=== PATIENT | male | born 2000 | race Caucasian/White ===

== ENCOUNTER 2020-10-30 14:27 | Emergency (ER) | payer SELFPAY ==
--- OUTSIDE RECORDS SUMMARY | 2020-10-30 14:30 | XMS REPORT | Continuity of Care Document ---
:2000 Author Organization [facility] t Address [facility] [address] [place] [address] Care Team Providers Name Role Phone System, Not In Primary Care Physician Unavailable Sharda HOUSTON, H Attending Clinician NONE Attending Clinician Unavailable NONE Admitting Clinician Unavailable Problems This patient has no known problems. Allergies, Adverse Reactions, Alerts Allergy Allergy Status Severity Reaction(s) Onset Inactive Treating Comm ents Source Name Type Date Date Clinician Naproxen Propensi Active Hives Method i ty to 12-01 st adverse 00:00: Hospita reaction 00 l s to drug Social History Social Habit Start Date Stop Date Quantity Comments Source Tobacco use and 2019-12-02 2019-12-02 Never used [facility]ondo[facility] exposure 00:00:00 00:00:00 Hospital Alcohol intake 2019-12-02 2019-12-02 Current drinker Metho dist 00:00:00 00:00:00 of [facility] (finding) Alcohol Comment 2019-12-02 2019-12-02 Very rare [facility] 00:00:00 00:00:00 Hospital Sex Assigned At [birth year] [facility] 00:00:00 00:00:00 Hospital Smoking Status Start Date Stop Date Source Never smoker [facility] al Medications Ordered Filled Start Stop Current Ordering Indication Dosage Frequency Signature Comments Components Source Medication Medication Date Date Medication? Clinician (SIG) Name Name docusate 2019- No 100mg Q12H Take 1 Metho di sodium 12-[address] (COLACE) 00:00: 04:59 (100 mg Hospi ta 100 MG 00 :00 total) by l capsule mouth every 12 (twelve) hours for 10 days. clindamycin 2019- No 300mg [id number] Take 2 [facility]i (CLEOCIN) 12-[id number] 150 MG 00:00: 04:59 3D (300 mg Hospita capsule 00 :00 total) by l mouth 3 (three) times a day for 5 days. acetaminoph 2019- [place] [address] 1{tbl} Q6H Take 1 Methodi en-codeine 12-[address] (TYLENOL 00:00: 04:59 mouth Hospita WITH 00 :00 every 6 l CODEINE #3) (six) 300-30 mg hours as per tablet needed for moderate pain for up to 3 days .acute pain. ondansetron 2019- No 4mg Q8H Take 1 Met hodi ODT 12-01 tablet (4 st (ZOFRAN-ODT 00:00: 04:59 mg total) Hospita ) 4 MG 00 :00 by mouth l disintegrat every 8 ing tablet (eight) hours as needed for nausea or vomiting for up to 3 days. Vital Signs Vital Name Observation Time Observation Value Comments Source Systolic blood 2019-12-02 23:52:00 122 mm[Hg] [facility] pressure Diastolic blood 2019-12-02 23:52:00 81 mm[Hg] [facility] pressure Heart rate 2019-12-02 23:52:00 71 /min [facility] Body temperature 2019-12-02 23:52:00 37.06 Becca [facility] Respiratory rate 2019-12-02 23:52:00 19 /min [facility] Oxygen saturation in 2019-12-02 23:52:00 99 /min [facility] Arterial blood by Pulse oximetry Body height 2019-12-02 22:32:00 180.3 cm [facility] Body weight 2019-12-02 22:32:00 72.576 kg [facility] BMI 2019-12-02 22:32:00 22.32 kg/m2 [facility] Procedures This patient has no known procedures. Encounters Start End Encounter Admission Attending Care Care Encounter Source Date/Time Date/Time Type Type Clinicians Facility Department ID 2019-12-02 2019-12-02 Emergency Sharda, [id number] [id number] [facility] 17:34:35 18:57:00 [facility] [id number] [id number] Hospit a .[id number] l .8 2019-12-02 2019-12-02 Emergency SHARDA, [facility] [id number] [place] [address] 00:00:00 00:00:[address] [facility] [address] 2019-06-01 2019-06-01 Emergency E [facility] 7501 16:54:00 16:54:00 [facility] 2018-09-23 2018-09-23 Emergency E [facility] [id number] 22:23:00 22:23:00 [facility] [place] Test Description Test Time Test Comments Results Result Comments Source B12, VITAMIN 2018-04-12 12:02:00 Test Item Value Reference Range Interpretation Comme nts B12 (test code = B12) 473 pg/ml [id number] 10:08:00 Test Item Value Reference Range Interpretation Comments Sodium (test code = 141 mmol/l 137-145 NA) Potassium (test 4.1 mmol/l 3.5-5.1 code = K) Chloride (test code 105 mmol/l 98-107 = CL) Calcium (test code 9.5 mg/dl 8.5-10.1 = CALC) CO2 (test code = 31 mmol/l 21-32 CO2) Glucose (test code 78 mg/dl 74-106 = GLU) BUN (test code = 10.0 mg/dl 7.0-18.0 BUN) Creatinine (test 1.0 mg/dl 0.5-1.3 code = CREA) T Protein (test 7.8 gm/dl 6.4-8.2 code = TP) Albumin (test code 4.1 gm/dl 3.4-5.0 = ALB) A/G Ratio (test 1.1 % 1.1-2.2 code = AGRAT) AST (SGOT) (test 14 U/L 15-37 L code = AST) ALT (SGPT) (test 17 U/L 13-61 code = ALT) Alkaline Phos (test 83 U/L 45-117 code = ALKP) Total Bilirubin 0.5 mg/dl 0.2-1.0 (test code = TBIL) Globulin (test code 3.7 gm/dl 2.3-3.5 H = GLOBU) Calcium, Corrected 9.4 mg/dl 8.4-10.2 Various f ormulas exist (test code = for corrected s sara CALCCORR) calcium results , each yielding differ ent values. This corrected resul t was based on the fo rmula: Corrected Calci um = SerumCalcium + [0.8 * ( 4 - SerumAlbu min)] EGFR if >60 Russian (test code mL/min/1.73m\\ = EGFRAA) S\\2 EGFR if Non- >60 Estimate d Glomerular Russian (test code mL/min/1.73m\\ Filtrat ion Rate (eGFR) = EGFRNA) S\\2 Reference Inter vals Decision Points for 18 years and older and average body ma ss: >= 60 Does not exc lude kidney disease. 30 - 59 Suggests modera te chronic kidney disease and indicat es the need for furthe r investigation including asses sment of proteinuria and cardiovascular factors. < 30 Usually in dicates a need for refe rral for assessment and management of c hronic kidney failure. [id number] 10:08:00 Test Item Value Reference Range Interpretation Comments Folic Acid (test code = FOLIC) 7.40 ng/ml 3.10-17.50 VALPROIC [id number] 10:08:00 Test Item Value Reference Range Interpretation Comments Valproic Acid (test code = VALPR) 35.2 ug/ml 50.0-120.0 L CBC WITH AUTO [id number] 10:07:00 Test Item Value Reference Range Interpretation Comments WBC (test code = 5.08 10\\S\\3/ul 4.80-10.80 WBC) RBC (test code = 4.95 10\\S\\6/ul 4.70-6.10 RBC) Hemoglobin (test 15.0 gm/dl 14.0-18.0 code = HGB) Hematocrit (test 45.4 % 42.0-50.0 code = HCT) MCV (test code = 91.7 fL 80.0-94.0 MCV) MCH (test code = 30.3 pg 27.0-31.0 MCH) MCHC (test code = 33.0 gm/dl 33.0-37.0 MCHC) RDW (test code = 11.9 % 11.5-14.5 RDWVC) Platelet (test code 256 10\\S\\3/ul 130-400 = PLT) MPV (test code = 10.0 fL 7.4-10.4 A "NOT MEASUR ED" MPV) RESULTS ARE DIS PLAYED WHEN THE INSTRU MENT HAS A SUPPRESSE D OR UNREPORTABLE RE SULT. THIS WILL MOST OFTEN HAPPEN WITH THE MPV WHEN THERE IS A N ABNORMAL PLATEL ET DISTRIBUTION DU E TO A CRITICAL LOW VA LUE OR PLATELET CLUMPI NG. THE RDW MAY BE SUPPRESSED IF T HERE ARE MULTIPLE PE AKS PRESENT ON THE RBC HISTOGRAM. IN THIS CASE, A MANUAL REVIEW OF THE SLIDE WI LL BE PERFORMED, AND RBC MORPHOLOGY WILL BE NOTED ON THE RE PORT. NE% (test code = 42.6 % 42.0-75.0 NE) LY% (test code = 46.5 % 13.0-42.0 H LY) MO% (test code = 8.3 % 4.0-14.0 MO) EO% (test code = 1.8 % 1.0-5.0 EO) BA% (test code = 0.8 % 0.0-3.0 BA) IG% (test code = 0.0 % 0.0-0.4 IG%) NRBC, Auto (test 0 /100WBC 0-2 code = NRBC_AUTO) TSH (Ultra Sensitive)2018-04-12 10:07:00 Test Item Value Reference Range Interpretation Comments TSH (test code = TSH) 1.19 mIU/L 0.35-3.74 [id number] 10:05:00 Test Item Value Reference Range Interpretation Comments FT (test code = RPR) Non-Reactive (qualifier Non-Reactive N value)
[2020-10-30] MEDS ORDERED: ONDANSETRON 4 MG (ODT) TAB ONE (15:48)
[2020-10-30 17:52] LABS: SARS-COV-2 RT PCR POSITIVE (NEGATIVE)
--- NOTE | 2020-10-30 17:58 | ER ---
Nurse's Notes [facility] Name: Desean Kovacs Age: 20 yrs Sex: Male : 2000 Arrival Date: 10/30/2020 Time: 14:28 Bed DIS8 Private MD: Diagnosis: Coronavirus infection, unspecified Presentation: 10/30 15:27 Chief complaint: Patient states: Cough, N/D/D, fever, cough, joint pain x 48 hours. jl7 Coronavirus screen: cough unrelated to allergies, fever, Client presents with at least one sign or symptom that may indicate coronavirus-19. Standard/surgical mask placed on the client. Provider contacted for isolation considerations. Ebola Screen: No symptoms or risks identified at this time. Initial Sepsis Screen: Does the patient meet any 2 criteria? No. Patient's initial sepsis screen is negative. Does the patient have a suspected source of infection? No. Patient's initial sepsis screen is negative. Risk Assessment: Do you want to hurt yourself or someone else? Patient reports no desire to harm self or others. Onset of symptoms was October 30, 2020. 15:27 Method Of Arrival: Ambulatory 7 15:27 Acuity: KAROL 4 jl7 Historical: - Allergies: 15:30 No Known Allergies; jl7 - Home Meds: 15:30 None [Active]; jl7 - PMHx: 15:30 None; jl7 - PSHx: 15:30 None; jl7 - Immunization history:: Client reports receiving the 1st dose of the Covid vaccine, July 2020. - Social history:: Smoking status: unknown. Vital Signs: 15:27 BP 128 / 89; Pulse 74; Resp 17; Temp 99.7; Pulse Ox 99% ; Weight 71.67 kg; Height 5 ft. jl7 11 in. (180.34 cm); 15:27 Body Mass Index 22.04 (71.67 kg, 180.34 cm) jl7 ED Course: 14:28 Patient arrived in ED. am2 15:14 Agnes Mallory FNP-C is [facility]. kb 15:14 Milad Lantigua is Attending Physician. kb 15:30 Triage completed. jl7 15:30 Arm band placed on right wrist. Patient placed in waiting room, Patient notified of jl7 wait time. 18:08 Gino, Cathy, RN is Primary Nurse. iw Administered Medications: 15:33 Drug: Zofran (Ondansetron) 4 mg Route: PO; kb 16:00 Follow up: Response: No adverse reaction iw Outcome: 17:57 Discharge ordered by . luz 18:08 Patient left the ED. iw Signatures: Agnes Mallory, PATIENT PARTNER-C PATIENT PARTNER-Ckb Cathy Christian RN RN iw Leal, Jahala, RN RN jl Lacie Alberto
--- NOTE | 2020-10-30 17:58 | EDPHYS ---
Physician Documentation [facility] Name: Desean Kovacs Age: 20 yrs Sex: Male : 2000 Arrival Date: 10/30/2020 Time: 14:28 Bed DIS8 Private MD: ED Physician Milad Lantigua HPI: 10/30 17:46 This 20 yrs old Male presents to ER via Ambulatory with complaints of Cough, kb Diarrhea, Shortness Of Breath, General Weakness. 17:46 The patient or guardian reports cough, that is intermittent, described as mild, with no kb sputum, flu symptoms, low-grade fever, myalgias, no appetite. Onset: The symptoms/episode began/occurred 48 hour(s) ago. Severity of symptoms: At their worst the symptoms were moderate, in the emergency department the symptoms are unchanged. Modifying factors: The symptoms are alleviated by nothing, the symptoms are aggravated by nothing. Associated signs and symptoms: Pertinent positives: diarrhea, fever, nausea, rhinorrhea, vomiting. The patient has not experienced similar symptoms in the past. The patient has not recently seen a physician. Pt reports cough, headache, back pain, joint pain, n/v/d, fever for 48 hours. Historical: - Allergies: 15:30 No Known Allergies; jl7 - Home Meds: 15:30 None [Active]; jl7 - PMHx: 15:30 None; jl7 - PSHx: 15:30 None; jl7 - Immunization history:: Client reports receiving the 1st dose of the Covid vaccine, July 2020. - Social history:: Smoking status: unknown. ROS: 17:46 Cardiovascular: Negative for chest pain, palpitations, and edema. kb 17:46 Constitutional: Positive for body aches, chills, fatigue, fever, malaise. 17:46 Respiratory: Positive for cough, Negative for dyspnea on exertion, hemoptysis, orthopnea, pleurisy, shortness of breath, sputum production, wheezing. 17:46 Abdomen/GI: Positive for nausea, vomiting, and diarrhea. 17:46 Neuro: Positive for headache. 17:46 All other systems are negative. Exam: 17:48 Constitutional: This is a well developed, well nourished patient who is awake, alert, kb and in no acute distress. Head/Face: Normocephalic, atraumatic. ENT: Moist Mucous membranes Cardiovascular: Regular rate and rhythm with a normal S1 and S2. No gallops, murmurs, or rubs. No pulse deficits. Respiratory: Respirations even and unlabored. No increased work of breathing, no retractions or nasal flaring. Skin: Warm, dry with normal turgor. Normal color. MS/ Extremity: Pulses equal, no cyanosis. Neurovascular intact. Full, normal range of motion. Neuro: Awake and alert, GCS 15, oriented to person, place, time, and situation. Moves all extremities. Normal gait. Psych: Awake, alert, with orientation to person, place and time. Behavior, mood, and affect are within normal limits. Vital Signs: 15:27 BP 128 / 89; Pulse 74; Resp 17; Temp 99.7; Pulse Ox 99% ; Weight 71.67 kg; Height 5 ft. jl7 11 in. (180.34 cm); 15:27 Body Mass Index 22.04 (71.67 kg, 180.34 cm) jl7 MDM: 15:32 Patient medically screened. kb 17:48 Data reviewed: vital signs, nurses notes. Data interpreted: Pulse oximetry: on room air kb is 99 %. Interpretation: normal. Counseling: I had a detailed discussion with the patient and/or guardian regarding: the historical points, exam findings, and any diagnostic results supporting the discharge/admit diagnosis, lab results, the need for outpatient follow up, a family practitioner, to return to the emergency department if symptoms worsen or persist or if there are any questions or concerns that arise at home. 10/30 17:52 Order name: COVID-19/FLU A+B; Complete Time: 17:55 EDMS Administered Medications: 15:33 Drug: Zofran (Ondansetron) 4 mg Route: PO; kb 16:00 Follow up: Response: No adverse reaction iw Disposition: 18:58 Co-signature as Attending Physician, Milad Lantigua I agree with the assessment and plan sp3 of care. Disposition Summary: 10/30/20 17:57 Discharge Ordered Location: Home kb Condition: Stable kb Diagnosis - Coronavirus infection, unspecified kb Followup: kb - With: Emergency Department - When: As needed - Reason: Worsening of condition Followup: kb - With: Private Physician - When: 2 - 3 days - Reason: Recheck today's complaints, Continuance of care, Re-evaluation by your physician Discharge Instructions: - Discharge Summary Sheet kb - Viral Respiratory Infection, [id number] kb - COVID-19 kb Forms: - Medication Reconciliation Form kb - Thank You Letter kb - Antibiotic Education kb - Prescription Opioid Use kb Prescriptions: - Zofran 4 mg Oral Tablet - take 1 tablet by ORAL route every 6 hours As needed; 20 tablet; Refills: 0, kb Product Selection Permitted Signatures: Dispatcher [employer] EDMS Agnes Mallory, KEERTHI-C PHOTOGRAPHIC PRESS SCREWMAKER-Dana Roberts, RN RN jl7 Milad Lantigua sp3 Cathy Christian RN iw Corrections: (The following items were deleted from the chart) 16:48 15:04 Influenza Screen (A \T\ B)+BA.LAB.BRZ ordered. EDMS EDMS 16:49 15:04 CORONAVIRUS+MR.LAB.BRZ ordered. EDMS EDMS
[2020-10-30 18:21] VITALS: BP 128/89; TEMP 99.7; O2SAT 99
== END 2020-10-30 18:08 | disposition home or self-care (01) ==
LOC: ER 14:27
DX: U07.1 COVID-19 (principal)
CPT/HCPCS: 0240U; 99282

== ENCOUNTER 2021-04-04 14:10 | Emergency (ER) | payer SELFPAY ==
--- OUTSIDE RECORDS SUMMARY | 2021-04-04 14:13 | XMS REPORT | Continuity of Care Document ---
:2000 Author Organization [facility] t Address [address] [place] [address] Care Team Providers Name Role Phone System, Not In Primary Care Physician Unavailable Zabrina HOUSTON, H Attending Clinician ABRIL Attending Clinician Unavailable NONE Attending Clinician Unavailable NONE Admitting Clinician [...] Tobacco use and 2019-12-02 2019-12-02 Never used [facility]ist exposure 00:00:00 00:00:00 Hospital Alcohol intake 2019-12-02 2019-12-02 Current drinker Metho dist 00:00:00 00:00:00 of alcohol Hospital (finding) Alcohol Comment 2019-12-02 2019-12-02 Very rare [facility] 00:00:00 00:00:00 Hospital Sex Assigned At [birth year] [facility] 00:00:00 00:00:00 Hospital Smoking Status Start Date Stop Date Source Never smoker [facility] al Medications Ordered Filled Start Stop Current Ordering Indication Dosage Frequency Signature Comments Components Source Medication Medication Date Date Medication? Clinician (SIG) Name Name docusate 2019-0 2020- No 100mg Q12H Take 1 Metho di sodium 12-[address] (COLACE) 00:00: 04:59 (100 mg Hospi ta 100 MG 00 :00 total) by l capsule mouth every 12 (twelve) hours for 10 days. clindamycin 300mg Q.[id number] Take 2 [facility] (CLEOCIN) 12-[id number] 150 MG 00:00: 04:59 3D (300 mg Hospita capsule 00 :00 total) by l mouth 3 (three) times a day for 5 [place] [id number] 1{tbl} Q6H Take 1 [facility] en-codeine 12-[address] (TYLENOL 00:00: 04:59 mouth Hospita WITH 00 :00 every 6 l CODEINE #3) (six) 300-30 mg hours as per tablet needed for moderate pain for up to 3 days .acute pain. ondansetron No 4mg Q8H Take 1 Met hodi ODT 12-01 tablet (4 st (ZOFRAN-ODT 00:00: 04:59 mg total) Hospita ) 4 MG 00 :00 by mouth l disintegrat every 8 ing tablet (eight) hours as needed for nausea or vomiting for up to 3 days. Vital Signs Vital Name Observation Time Observation Value Comments Source Systolic blood 2019-12-02 23:52:00 122 mm[Hg] [facility] pressure Diastolic blood 2019-12-02 23:52:00 81 mm[Hg] [facility] pressure Heart rate 2019-12-02 23:52:00 71 /min [facility] Body temperature 2019-12-02 23:52:00 37.06 Becca [facility] Respiratory rate 2019-12-02 23:52:00 19 /min [facility] Oxygen saturation in 2019-12-02 23:52:00 99 /min [facility] Arterial blood by Pulse oximetry Body height 2019-12-02 22:32:00 180.3 cm [facility] Body weight 2019-12-02 22:32:00 72.576 kg [facility] BMI 2019-12-02 22:32:00 22.32 kg/m2 [facility] Procedures This patient has no known procedures. Encounters Start End Encounter Admission Attending Care Care Encounter Source Date/Time Date/Time Type Type Clinicians Facility Department ID 2019-12-02 2019-12-02 Emergency Zabrina, [id number] [id number] [facility] 17:34:35 18:57:00 [place] [address] 3.430.2.7 Hospit a .3.030668 l .8 2019-06-01 2019-06-01 Emergency E ABRIL, [place] [facility] 7501 16:54:00 17:14:00 [facility] [place] [facility] 2018-09-23 2018-09-23 Emergency E [place] [facility] 7500 22:23:00 22:23:00 [place] [facility] Results Test Description Test Time Test Comments Results Result Comments Source B12, VITAMIN 2018-04-12 12:02:00 Test Item Value Reference Range Interpretation Comme nts B12 (test code = B12) 473 pg/ml [id number] 10:08:00 Test Item Value Reference Range Interpretation [...] 4 - SerumAlbu min)] EGFR if >60 Niuean (test code mL/min/1.73m\\ = EGFRAA) S\\2 EGFR if Non- >60 Estimate d Glomerular Niuean (test code mL/min/1.73m\\ Filtrat ion Rate (eGFR) [...] and management of c hronic kidney failure. [id number] 10:08:00 Test Item Value Reference Range Interpretation Comments Folic Acid (test code = FOLIC) 7.40 ng/ml 3.10-17.50 VALPROIC [id number] 10:08:00 Test Item Value Reference Range Interpretation Comments Valproic Acid (test code = VALPR) 35.2 ug/ml 50.0-120.0 L CBC WITH AUTO [id number] 10:07:00 Test Item Value Reference Range Interpretation [...] (test code = TSH) 1.19 mIU/L 0.35-3.74 [id number] 10:05:00 Test Item Value Reference Range Interpretation Comments FT (test code = RPR) Non-Reactive (qualifier Non-Reactive N value)
[2021-04-04 14:36] LABS: Urine Blood Negative (Negative); Urine Glucose Negative (Negative); Urine Protein Negative (Negative); Urine Specific Gravity >=1.030 (1.005-1.030)
[2021-04-04 15:06] LABS: Absolute Lymphocytes (CBC) 1.7 K/uL (0.7-4.9); Hematocrit 44.9 % (39.6-49.0); Lymphocytes % 25.7 % (15.3-44.8); MPV 7.4 fL (7.6-11.3); RBC Red Blood Cell Count 4.99 M/uL (4.33-5.43)
[2021-04-04 15:09] LABS: Protime INR 1.04
[2021-04-04 15:15] LABS: Barbiturates NEGATIVE (NEGATIVE); Benzodiazepines NEGATIVE (NEGATIVE); Cocaine NEGATIVE (NEGATIVE); METHAMPHETAM NEGATIVE (NEGATIVE); Methadone NEGATIVE (NEGATIVE); Opiates NEGATIVE (NEGATIVE); Phencyclidine NEGATIVE (NEGATIVE); THC Cannibis POSITIVE (NEGATIVE)
[2021-04-04 15:24] LABS: ALT/SGPT 17 U/L (12-78); AST/SGOT 13 U/L (15-37); Albumin 4.1 g/dL (3.4-5.0); Alkaline Phosphatase 67 U/L (45-117); BUN Blood Urea Nitrogen 9 mg/dL (7-18); Bicarbonate 26 mmol/L (21-32); Bilirubin Direct < 0.1 mg/dL (0-0.2); Bilirubin Total 0.3 mg/dL (0.2-1.0); Glucose Level 89 mg/dL (74-106); Potassium 3.7 mmol/L (3.5-5.1); Sodium Level 136 mmol/L (136-145)
[2021-04-04] MEDS ORDERED: LORazepam 2 MG/ML VIAL ONE ×2 (15:39→19:38)
[2021-04-04 15:58] LABS: SARS-COV-2 RT PCR POSITIVE (NEGATIVE)
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
--- NOTE | 2021-04-04 17:34 | EDPHYS ---
Physician Documentation [facility] Name: Desean Kovacs Age: 20 yrs Sex: Male : 2000 Arrival Date: 04/04/2021 Time: 14:12 Bed 17 Private MD: ED Physician Dima Blanton HPI: 04/04 14:26 This 20 yrs old Male presents to ER via Ambulatory with complaints of Mental Evaluation.[facility] 14:26 Onset: The symptoms/episode began/occurred. Past psychiatric history: the patient has jmm had a prior suicide gesture, hung himself. Associated signs and symptoms: Pertinent positives; anxiety, suicide ideation, Pertinent negatives: headache, homicidal ideation, paranoia. This is a 20 year old male with a history of type II bipolar that presents to the ED with concerns that he wants to harm himself. Plan was to overdose on xanax. Patient has attempted suicide in the past. Patient states symptoms initially developed when his fiance broke up with him on Mar 12. Patient states also having multiple family members that are sick or dying. Patient states he was last medicated in 2019. . Historical: - Allergies: 14:27 Lane; ll1 - PMHx: 14:27 bipolar 2; ll1 15:26 Anxiety; PTSD; Body dysmorphic disorder; Major depressive disorder; manic depression; eo2 - PSHx: 14:27 None; ll1 - Immunization history:: Client reports receiving the 1st dose of the Covid vaccine. - Social history:: Smoking status: Reported history of juuling and/or vaping. Smoking status: Patient uses street drugs, marijuana. ROS: 14:26 Constitutional: Negative for fever, chills, and weight loss, Cardiovascular: Negative jmm for chest pain, palpitations, and edema, Respiratory: Negative for shortness of breath, cough, wheezing, and pleuritic chest pain. 14:26 Psych: Positive for anxiety, depression, suicidal ideation. 14:26 All other systems are negative. Exam: 14:26 Head/Face: atraumatic. Eyes: EOMI, no conjunctival erythema appreciated ENT: Moist jmm Mucus Membranes Neck: Trachea midline, Supple Chest/axilla: Normal chest wall appearance and motion. Cardiovascular: Regular rate and rhythm. No edema appreciated Respiratory: Normal respirations, no respiratory distress appreciated Abdomen/GI: Non distended, soft Back: Normal ROM Skin: General appearance color normal MS/ Extremity: Moves all extremities, no obvious deformities appreciated, no edema noted to the lower extremities Neuro: Awake and alert, normal gait 14:26 Constitutional: The patient appears alert, awake, anxious. 14:26 Psych: Behavior/mood is pleasant, cooperative, anxious, Patient having thoughts of suicide. Plan for suicide is overdose on xanax Judgement / Insight is normal. Vital Signs: 14:25 BP 138 / 114; Pulse 66; Resp 16; Temp 98.2; Pulse Ox 100% ; Weight 70.31 kg; Height 5 ll1 ft. 11 in. (180.34 cm); Pain 0/10; 14:49 BP 124 / 98; Pulse 82; Resp 17; Pulse Ox 97% ; Pain 0/10; eo2 18:04 BP 124 / 84; Pulse 73; Resp 16; Temp 98.0(O); Pulse Ox 99% on R/A; mh5 22:09 BP 116 / 74; Pulse 69; Resp 14; Temp 97.9; Pulse Ox 100% ; ds4 14:25 Body Mass Index 21.62 (70.31 kg, 180.34 cm) ll1 MDM: 14:30 Patient medically screened. mihir 17:32 Data reviewed: vital signs, nurses notes. Counseling: I had a detailed discussion with manjit the patient and/or guardian regarding: the historical points, exam findings, and any diagnostic results supporting the discharge/admit diagnosis, lab results, the need to transfer to another facility. 04/05 02:26 ED course: VSS. Patient sitting up in exam room eating chips and reports he is not cp suicidal and/or homicidal. 04/04 14:26 Order name: Acetaminophen; Complete Time: 15:26 [facility] 04/04 14:26 Order name: Basic Metabolic Panel; Complete Time: 15:26 [facility] 04/04 14:26 Order name: CBC with Diff; Complete Time: 15:18 [facility] 04/04 14:26 Order name: ETOH Level; Complete Time: 15:31 [facility] 04/04 14:26 Order name: Hepatic Function; Complete Time: 15:26 [facility] 04/04 14:26 Order name: PT-INR; Complete Time: 15:14 [facility] 04/04 14:26 Order name: Ptt, Activated; Complete Time: 15:14 [facility] 04/04 14:26 Order name: Salicylate; Complete Time: 15:30 [facility] 04/04 14:26 Order name: Urine Drug Screen; Complete Time: 15:18 [facility] 04/04 14:33 Order name: COVID-19/FLU A+B (Document "Date of Onset" if Symptomatic); Complete Time: [facility] 15:59 04/04 14:36 Order name: Urine Dipstick-Ancillary; Complete Time: 14:43 [facility] 04/04 14:26 Order name: EKG; Complete Time: 14:27 [facility] 04/04 14:26 Order name: EKG - Nurse/Tech; Complete Time: 15:13 [facility] 04/04 14:26 Order name: IV Saline Lock; Complete Time: 15:13 [facility] 04/04 14:26 Order name: Labs collected and sent; Complete Time: 15:13 [facility] 04/04 14:26 Order name: Suicide Screening (Alviso); Complete Time: 15:36 [facility] 04/04 14:26 Order name: Urine Dipstick-Ancillary (obtain specimen); Complete Time: 15:13 [facility] 04/04 15:33 Order name: Diet Finger Food; Complete Time: 15:34 mh5 Administered Medications: 04/04 15:42 Drug: Ativan (LORazepam) 1 mg Route: IVP; Site: right antecubital; eo2 16:42 Follow up: Response: No adverse reaction eo2 18:06 Drug: Nicoderm CQ Patch 21 mg/24 hr 1 patches {Note: r deltoid.} Route: Transdermal; jg9 Site: right thigh; 23:41 Follow up: Response: No adverse reaction ll3 19:40 Drug: Ativan (LORazepam) 1 mg Route: IVP; Site: right antecubital; as6 20:00 Follow up: Response: No adverse reaction 3 04/05 01:53 Drug: Viscous Lidocaine Liquid (4 %) 5 ml Route: Mucous Membrane; ll3 02:29 Drug: Tylenol 1000 mg Route: PO; tk1 Disposition: 08:31 Co-signature as Attending Physician, Dima Blanton MD I agree with the assessment and mihir plan of care. Disposition Summary: 04/05/21 02:28 Discharge Ordered Location: Home cp Problem: new(04/05/21 02:28) cp Symptoms: have improved(04/05/21 02:28) cp Condition: Stable(04/05/21 02:28) cp Diagnosis - Suicidal ideations - resolved(04/05/21 02:28) cp Followup: cp - With: Private Physician - When: 1 - 2 days - Reason: Recheck today's complaints Discharge Instructions: - Discharge Summary Sheet cp - Suicidal Feelings: How to Help Yourself cp - Helping Someone Who is Suicidal cp Forms: - Medication Reconciliation Form cp - Thank You Letter cp - Antibiotic Education cp - Prescription Opioid Use cp Signatures: Dispatcher [employer] EDMS Dima Blanton MD MD cha Mickail, Joel, PA PA Dima Gloria PA PA cp Lewis, Lynsay RN RN ll1 Adonay Noel RN RN as6 Mitul Layne RN RN ll3 Abby Ness RN RN jg9 Celine Crawford RN RN eo2 Elizabeth Ty tk1 Corrections: (The following items were deleted from the chart) 02:04/04 17:33 Psych [facility] cp 04/05 02:04/04 17:33 Psych Facility [facility] cp 04/05 01:04/04 17:33 Higher level of care [facility] cp 04/05 01:04/04 17:33 Stable [facility] cp 04/05 01:04/04 17:33 an acute exacerbation [facility] cp 04/05 01:04/04 17:33 are unchanged [facility] cp 04/05 01:04/04 17:33 Suicidal ideations [facility]
[2021-04-04] MEDS ORDERED: NICOTINE 21 MG/PAT TD ONE (17:50)
[2021-04-05] MEDS ORDERED: LIDOCAINE VISCOUS 2% SOLN 15 ML UDC ONE (01:43)
[2021-04-05] MEDS ORDERED: ACETAMINOPHEN 500 MG TAB ONE (02:27)
[2021-04-05 04:13] VITALS: BP 116/74; TEMP 97.9; O2SAT 100
--- NOTE | 2021-04-06 15:18 | EKG ---
Test Date: 2021-04-04 Test Time: 14:52:44 Procurement Analyst: CALOS MEASUREMENT RESULTS: Intervals: Rate: 64 IN: 132 QRSD: 108 QT: 356 QTc: 367 Omega: P: 43 IN: 132 QRS: 104 T: 59 INTERPRETIVE STATEMENTS: Sinus rhythm with marked sinus arrhythmia Rightward axis Incomplete right bundle branch block Borderline ECG No previous ECG available for comparison Electronically Signed On 04-06-21 15:15:02 SETTER OUT by Marek Holguin
== END 2021-04-05 03:40 | disposition home or self-care (01) ==
LOC: ER 14:10
DX: R45.851 Suicidal ideations (principal); F31.81 Bipolar II disorder; Z20.822 Contact with and (suspected) exposure to COVID-19; Z91.018 Allergy to other foods
CPT/HCPCS: 0240U; 36415; 80048; 80076; 80307; 80320; 80329; 81003; 85025; 85610; 85730; 93005; 96374; 99284

== ENCOUNTER 2022-04-08 22:42 | Emergency (ER) | payer SELFPAY ==
--- OUTSIDE RECORDS SUMMARY | 2022-04-08 22:45 | XMS REPORT | Continuity of Care Document ---
:2000 Author Organization [facility] t Address [address] [place] [address] Care Team Providers Name Role Phone System, Provider Not In Primary Care Physician Unavailable NOHEMI URIAS Attending Clinician Unavailable Shady Gerber MD Attending Clinician BHAVANA SAMUELS Attending Clinician Unavailable Payers Payer Name Policy Type Policy Number Effective Date Expiration Date S ource Problems This patient has no known problems. [...] Tobacco use and 2019-12-02 2019-12-02 Never used [facility] 00:[facility]00 [facility] Alcohol intake 2019-12-02 2019-12-02 Current drinker [facility] 00:00:00 00:00:00 of alcohol Hospital (finding) Alcohol Comment 2019-12-02 2019-12-02 Very rare [facility] 00:[facility] Sex Assigned At [birth year] [facility] Smoking Status Start Date Stop Date Source Never smoker [facility] Medications Ordered Filled Start Stop Current Ordering Indication Dosage Frequency Signature Comments Components Source Medication Medication Date Date Medication? Clinician (SIG) Name Name No known No No known [facility] medications 12-[address] 17:48: s [facility]osp[facility] 57 l docusate 2019- No 100mg Q12H Take 1 [facility] sodium 12-[address] (COLACE) 00:00: 04:59 (100 mg Hospi ta 100 MG 00 :00 total) by l capsule mouth every 12 (twelve) hours for 10 days. clindamycin 2019- No 300mg [id number] Take 2 [facility] (CLEOCIN) 12-[id number] 150 MG 00:00: 04:59 3D (300 mg Hospita capsule 00 :00 total) by l mouth 3 (three) times a day for 5 days. acetaminoph 2019- [place] [id number] 1{tbl} Q6H Take 1 [facility] en-codeine 12-[address] (TYLENOL 00:00: 04:59 mouth Hospita WITH 00 :00 every 6 l CODEINE #3) (six) 300-30 mg hours as per tablet needed for moderate pain for up to 3 days .acute pain. ondansetron 2019- No 4mg Q8H Take 1 [facility] ODT 12-01 tablet (4 st (ZOFRAN-ODT 00:00: 04:59 mg total) [facility] ) 4 MG 00 :00 by mouth l disintegrat every 8 ing tablet (eight) hours as needed for nausea or vomiting for up to 3 days. Vital Signs Vital Name Observation Time Observation Value Comments Source Systolic blood 2019-12-02 23:52:00 122 mm[Hg] [facility] pressure Diastolic blood 2019-12-02 23:52:00 81 [facility] Heart rate 2019-12-02 23:52:00 71 /min [facility] Body temperature 2019-12-02 23:52:00 37.06 Becca [facility] Respiratory rate 2019-12-02 23:52:00 19 /min [facility] Oxygen saturation in 2019-12-02 23:52:00 99 /min [facility] Arterial blood by Pulse oximetry Body height 2019-12-02 22:32:00 180.3 cm [facility] Body weight 2019-12-02 22:32:[address] [facility] BMI 2019-12-02 22:32:00 22.32 kg/m2 [facility] Procedures This patient has no known procedures. Encounters Start End Encounter Admission Attending Care Care Encounter Source Date/Time Date/Time Type Type Clinicians Facility Department ID 2021-07-05 2021-07-05 Emergency [facility] [id number] [place] 02:00[facility]00 [facility]26[facility] 2021-07-04 2021-07-04 Emergency [facility] [id number] [place] 22:05:41 22:18:48 [facility] 2021-07-04 2021-07-04 Emergency 1 [facility] [id number] [place] 21:49:00 21:49:00 [facility] 2019-12-02 2019-12-02 Emergency Zabrina, [id number] [facility] 17:34:35 18:57:[address] [place] [id number] [id number] Hospit [id number] l .8 2019-06-01 2019-06-01 Emergency E ABRIL, [facility]SE [facility] [id number] MH 16:54:00 17:14:[facility] 2018-09-23 2018-09-23 Emergency E [facility]SE [facility] [id number] [facility] 22:23:[facility] [facility] [address] [facility] Results Test Description Test Time Test Comments Results Result Comments Source HIV 1+2 Ab+HIV1 p24 Ag SerPl Ql [place] 2021-07-04 23:20:32 Test Item Value Reference Range Interpretation Comme nts HIV 1+2 Ab+HIV1 p24 Ag SerPl Ql IA (test code = 27972-9) NEGATIVE Negative [facility]
--- NOTE | 2022-04-08 23:01 | EDPHYS ---
Physician Documentation [facility] Name: Desean Kovacs Age: 21 yrs Sex: Male : 2000 Arrival Date: 04/08/2022 Time: 22:45 Bed IW4 Private MD: ED Physician César Ward HPI: 04/08 23:02 This 21 yrs old Male presents to ER via Unassigned with complaints of Ankle Injury. rn 23:02 The patient presents with pain. The complaints affect the left ankle. Onset: The rn symptoms/episode began/occurred 3 week(s) ago. Associated signs and symptoms: Pertinent positives: swelling, Pertinent negatives: rash, weakness. Modifying factors: The symptoms are alleviated by wearing boot the symptoms are aggravated by weight bearing, movement. Severity of symptoms: At their worst the symptoms were moderate, in the emergency department the symptoms have improved. The patient has not experienced similar symptoms in the past. The patient has been recently seen by a physician:. Pt reports injured left ankle 3 weeks ago, stepped in hole, heard a pop, told not broken, maybe sprain or tear. Placed in walking boot, has been using walking boot since then, just moved here, hasn't had a chance to f/u. No new injury. Pain has improved but not gone yet so came in for evaluation. . Historical: - Allergies: 23:04 [place]; pf1 23:04 Tylenol; pf1 - PMHx: 23:04 Anxiety; bipolar 2; Body dysmorphic disorder; Major Depressive Disorder; MANIC pf1 DEPRESSION; PTSD; borderline personal disorder; - PSHx: 23:04 wisdom teeth removal; pf1 - Immunization history:: Adult Immunizations up to date, Client reports receiving the 1st dose of the Covid vaccine, Last tetanus immunization: < 10 years ago Flu vaccine is not up to date. It has been more than one year since last vaccine. - Social history:: Smoking status: Reported history of juuling and/or vaping. Patient uses street drugs, marijuana, Patient/guardian denies using alcohol. - Family history:: not pertinent. - Hospitalizations: : No recent hospitalization is reported. ROS: 23:02 Constitutional: Negative for fever, chills, and weight loss, MS/Extremity: + left ankle rn pain Skin: Negative for injury, rash, and discoloration, Neuro: Negative for weakness, and seizure. Exam: 23:02 Constitutional: This is a well developed, well nourished patient who is awake, alert, rn and in no acute distress. Skin: Warm, dry with normal turgor. Normal color with no rashes, no lesions, and no evidence of cellulitis. MS/ Extremity: Pulses equal, no cyanosis. Neurovascular intact. Mild tenderness under bilateral malleoli. No ecchymosis. No instability of ankle appreciated. No tenderness of achilles or calf. Vital Signs: 22:57 BP 129 / 94; Pulse 71; Resp 18; Temp 98.2; Pulse Ox 100% on R/A; Weight 70.31 kg; pf1 Height 5 ft. 11 in. (180.34 cm); Pain 7/10; 22:57 Body Mass Index 21.62 (70.31 kg, 180.34 cm) pf1 MDM: 22:46 Patient medically screened. rn 23:02 Differential diagnosis: sprain, arthritis. Differential diagnosis: tear. Data reviewed: rn vital signs, nurses notes. Test considered but Not performed: X-ray: Xray not performed due to injury 3 days old and improving symptoms. . MRI: MRI not available at this hospital at this time to eval for tear. Counseling: I had a detailed discussion with the patient and/or guardian regarding: the historical points, exam findings, and any diagnostic results supporting the discharge/admit diagnosis, the need for outpatient follow up, to return to the emergency department if symptoms worsen or persist or if there are any questions or concerns that arise at home. Special discussion: I discussed with the patient/guardian in detail that at this point there is no indication for admission to the hospital. It is understood, however, that if the symptoms persist or worsen the patient needs to return immediately for re-evaluation. Further emergent ED testing is not indicated at this point in time. I discussed with the patient/guardian in detail the need to arrange with the PCP or specialist further outpatient testing, MRI, Based on the history and exam findings, there is no indication for further emergent testing or inpatient evaluation. I discussed with the patient/guardian the need to see the orthopedic surgeon for further evaluation of the symptoms. Administered Medications: No medications were administered Disposition Summary: 04/08/22 23:00 Discharge Ordered Location: Home rn Problem: an ongoing problem rn Symptoms: have improved rn Condition: Stable rn Diagnosis - Sprain of ankle rn - Pain in left ankle and joints of left foot rn Followup: rn - With: Dontae Bliss MD - When: As needed - Reason: Recheck today's complaints, Re-evaluation by your physician Discharge Instructions: - Discharge Summary Sheet rn - Ankle Sprain rn - Joint Pain rn Forms: - Medication Reconciliation Form rn - Thank You Letter rn - Antibiotic rn case management - Prescription Opioid Use rn Signatures: César Ward MD MD rn finley, Pamala, RN RN pf1
--- NOTE | 2022-04-08 23:01 | ER ---
Nurse's Notes [facility] Name: Desean Kovacs Age: 21 yrs Sex: Male : 2000 Arrival Date: 04/08/2022 Time: 22:45 Bed IW4 Private MD: Diagnosis: Sprain of ankle;Pain in left ankle and joints of left foot Presentation: 04/08 22:52 Chief complaint: Patient states: Left ankle pain of 7 with swelling,onset 03/16/22. pf1 atient stated stepped into a hole and heard a pop from left ankle, F/U with a Dr, was negative for fx and currently has a walking boot on. Patient stated did not take anything for pain today. 22:57 Coronavirus screen: Vaccine status: Patient reports receiving the 1st dose of the Covid pf1 vaccine. Client denies travel out of the [place] in the last 14 days. At this time, the client does not indicate any symptoms associated with coronavirus-19. Ebola Screen: Patient negative for fever greater than or equal to 101.5 degrees Fahrenheit, and additional compatible Ebola Virus Disease symptoms. Initial Sepsis Screen: Does the patient meet any 2 criteria? No. Patient's initial sepsis screen is negative. Does the patient have a suspected source of infection? No. Patient's initial sepsis screen is negative. Risk Assessment: Do you want to hurt yourself or someone else? Patient reports no desire to harm self or others. Onset of symptoms was March 16, 2022. 22:57 Method Of Arrival: Ambulatory pf1 22:57 Acuity: KAROL 4 pf1 Triage Assessment: 23:08 General: Appears in no apparent distress. comfortable, well groomed, well developed, pf1 Behavior is calm, cooperative, appropriate for age, quiet. Pain: Complains of pain in left ankle Pain currently is 7 out of 10 on a pain scale. EENT: No deficits noted. No signs and/or symptoms were reported regarding the EENT system. Neuro: No deficits noted. Level of Consciousness is awake, alert, obeys commands, Oriented to person, place, time, situation. Cardiovascular: No deficits noted. Capillary refill < 3 seconds Patient's skin is warm and dry. Respiratory: No deficits noted. Airway is patent Trachea midline Respiratory effort is even, unlabored, Respiratory pattern is regular, symmetrical. GI: No deficits noted. No signs and/or symptoms were reported involving the gastrointestinal system. : No deficits noted. No signs and/or symptoms were reported regarding the genitourinary system. Derm: No deficits noted. No signs and/or symptoms reported regarding the dermatologic system. Musculoskeletal: Circulation, motion, and sensation intact. Capillary refill < 3 seconds, Range of motion: intact in all extremities, Swelling present in left ankle. Historical: - Allergies: 23:04 [place]; pf1 23:04 Tylenol; pf1 - PMHx: 23:04 Anxiety; bipolar 2; Body dysmorphic disorder; Major Depressive Disorder; MANIC pf1 DEPRESSION; PTSD; borderline personal disorder; - PSHx: 23:04 wisdom teeth removal; pf1 - Immunization history:: Adult Immunizations up to date, Client reports receiving the 1st dose of the Covid vaccine, Last tetanus immunization: < 10 years ago Flu vaccine is not up to date. It has been more than one year since last vaccine. - Social history:: Smoking status: Reported history of juuling and/or vaping. Patient uses street drugs, marijuana, Patient/guardian denies using alcohol. - Family history:: not pertinent. - Hospitalizations: : No recent hospitalization is reported. Screenin:10 [facility] ED Fall Risk Assessment (Adult) History of falling in the last 3 months, pf1 including since admission No falls in past 3 months (0 pts) Confusion or Disorientation No (0 pts) Intoxicated or Sedated No (0 pts) Impaired Gait No (0 pts) Mobility Assist Device Used No (0 pt) Altered Elimination No (0 pt) Score/Fall Risk Level 0 - 2 = Low Risk Oriented to surroundings, Maintained a safe environment, Educated pt \T\ family on fall prevention, incl call for assistance when getting out of bed, Assessed \T\ reinforced patient's understanding of fall precautions, Provided non-skid footwear, Hourly rounding (assess needs \T\ fall precautionary measures) done, Used ambulatory aids as needed (educated on \T\ assisted with), Used gait belt as appropriate. Abuse screen: Denies threats or abuse. Nutritional screening: No deficits noted. Tuberculosis screening: No symptoms or risk factors identified. Assessment: 23:10 General: see triage assessment. pf1 Vital Signs: 22:57 BP 129 / 94; Pulse 71; Resp 18; Temp 98.2; Pulse Ox 100% on R/A; Weight 70.31 kg; pf1 Height 5 ft. 11 in. (180.34 cm); Pain 7/10; 22:57 Body Mass Index 21.62 (70.31 kg, 180.34 cm) pf1 ED Course: 22:45 Patient arrived in ED. ja2 22:46 César Ward MD is Attending Physician. rn 23:00 Dontae Bliss MD is Referral Physician. rn 23:04 Triage completed. pf1 23:11 Patient has correct armband on for positive identification. pf1 23:11 Arm band placed on left wrist. pf1 23:11 No provider procedures requiring assistance completed. Patient did not have IV access pf1 during this emergency room visit. Administered Medications: No medications were administered Medication: 23:10 VIS not applicable for this client. pf1 Outcome: 23:00 Discharge ordered by MD. rn 23:11 Discharged to home ambulatory. pf1 23:11 Condition: stable 23:11 Discharge instructions given to patient, Instructed on discharge instructions, follow up and referral plans. Demonstrated understanding of instructions, follow-up care. 23:12 Patient left the ED. pf1 Signatures: César Ward MD MD rn Alexander, Jessica ja2 finley, Pamala, RUFUS RN pf1 Corrections: (The following items were deleted from the chart) 23:04 22:52 Chief complaint: Patient states: left ankle pain of 7 with swelling,onset 03/16/22. pf1 patient stated stepped into a hole and heard a pop, F/U with a dr and currently has a walking boot on. Patient stated pf1
[2022-04-09 00:39] VITALS: BP 129/94; TEMP 98.2; O2SAT 100
== END 2022-04-08 23:12 | disposition home or self-care (01) ==
LOC: ER 22:42
DX: S93.402A Sprain of unspecified ligament of left ankle, initial encounter (principal)
CPT/HCPCS: 99281

== ENCOUNTER 2022-12-29 15:43 | Emergency (ER) | payer SELFPAY ==
[2022-12-29 16:22] LABS: Absolute Lymphocytes (CBC) 1.6 K/uL (0.7-4.9); Hematocrit 42.5 % (39.6-49.0); Lymphocytes % 31.6 % (15.3-44.8); MCV 87.4 fL (80-100); MPV 7.2 fL (7.6-11.3); Platelets 224 thou/uL (152-406); RBC Red Blood Cell Count 4.86 M/uL (4.33-5.43)
--- OUTSIDE RECORDS SUMMARY | 2022-12-29 16:29 | XMS REPORT | Continuity of Care Document ---
:2000 Author Organization [facility] t Address [address] [place] [address] Care Team Providers Name Role Phone Provider , Not In System Primary Care Physician NOHEMI Arroyo Attending Clinician Unavailable Shady Gerber MD Attending Clinician Payers Payer Name Policy Type Policy Number Effective Date Expiration Date S ource Problems This patient has no known problems. Allergies, Adverse Reactions, Alerts Allergy Allergy Status Severity Reaction(s) Onset Inactive Treating Comm ents Source Name Type Date Date Clinician Naproxen Propensi Active Hives [facility] [address] adverse 00:00: Hospita reaction 00 l s to drug Social History Social Habit Start Date Stop Date Quantity Comments Source Sexual [facility] Tobacco use and 2019-12-02 2019-12-02 Smokeless [facility] exposure 00:00:00 00:00:00 tobacco non-user Hospital Alcohol intake 2019-12-02 2019-12-02 Current drinker [facility] 00:00:00 00:00:00 of alcohol Hospital (finding) History of Social 2019-12-02 2019-12-[address] function 00:00:00 00:00:00 Hospital Alcohol Comment 2019-12-02 2019-12-02 Very rare [facility] 00:00:00 00:00:00 Hospital Sex Assigned At [birth year] [facility] 00:[facility]00 [facility] Smoking Status Start Date Stop Date Source Never smoked tobacco [facility] Medications Ordered Filled Start Stop Current Ordering [...] for 10 days. clindamycin 2019- No 300mg [id number] Take 2 [facility] (CLEOCIN) 12-[id number] 150 MG 00:00: 04:59 3D (300 mg Hospita capsule 00 :00 total) by l mouth 3 (three) times a day for 5 days. acetamin[place] 2019[place] [address] 1{tbl} Q6H Take 1 [facility] en-codeine 12-[address] (TYLENOL 00:00: 04:59 mouth Hospita WITH 00 :00 every 6 l CODEINE #3) (six) 300-30 mg hours as per tablet needed for moderate pain for up to 3 days .acute pain. ondansetron 2019- No 4mg Q8H Take 1 [facility] ODT 12-01 tablet (4 st (ZOFRAN-ODT 00:00: 04:59 mg total) [facility] 4 MG 00 :00 by mouth l disintegrat every 8 ing tablet (eight) hours as needed for nausea or vomiting for up to 3 days. Vital Signs Vital Name Observation Time Observation Value Comments Source Systolic blood 2019-12-02 23:52:00 122 mm[Hg] [facility] pressure Diastolic blood 2019-12-02 23:52:00 81 mm[Hg] [facility] pressure Heart rate 2019-12-02 23:52:00 71 /min [facility] Body temperature 2019-12-02 23:52:00 37.06 Becca [facility] Respiratory rate 2019-12-02 23:52:00 19 /min [facility] Oxygen saturation in 2019-12-02 23:52:00 99 /min [facility] Arterial blood by Pulse oximetry Body height 2019-12-02 22:32:00 180.3 cm [facility] Body weight 2019-12-02 22:32:00 72.576 kg [facility] BMI 2019-12-02 22:32:00 22.32 kg/m2 [facility] Procedures This patient has no known procedures. Encounters Start End Encounter Admission Attending Care Care Encounter Source Date/Time Date/Time Type Type Clinicians Facility Department ID 2021-07-05 2021-07-05 Emergency [facility] [id number] [place] 02:00:00 02:26:00 [facility] 2021-07-04 2021-07-04 Emergency [facility] [id number] [place] 22:05:41 22:18:48 [facility] 2021-07-04 2021-07-04 Emergency 1 [facility] [id number] [place] 21:49:00 21:49:00 [facility] 2019-12-02 2019-12-02 Emergency Zabrina, [id number] [facility] 17:34:35 18:57:[address] [facility] [id number] [id number] Hospit [id number] l .8 Results Test Description Test Time Test Comments Results Result Comments Source HIV 1+2 Ab+HIV1 p24 Ag SerPl Ql [place] 2021-07-04 23:20:32 Test Item Value Reference Range Interpretation Comme nts HIV 1+2 Ab+HIV1 p24 Ag SerPl Ql IA (test code = 08248-8) NEGATIVE Negative [facility]
[2022-12-29 16:35] LABS: Protime INR 1.18
[2022-12-29 17:04] LABS: ALT/SGPT 22 U/L (16-61); AST/SGOT 16 U/L (15-37); Albumin 4.2 g/dL (3.4-5.0); Alkaline Phosphatase 62 U/L (45-117); BUN Blood Urea Nitrogen 15 mg/dL (7-18); Bicarbonate 26 mEq/L (21-32); Bilirubin Direct 0.1 mg/dL (0-0.2); Bilirubin Indirect, Calculated 0.5 mg/dL (0.2-0.8); Bilirubin Total 0.6 mg/dL (0.2-1.0); Glomerular Filtration Rate 92 ml/min (=/>90); Glucose Level 100 mg/dL (74-106); Potassium 3.9 mEq/L (3.5-5.1); Protein, Total 7.9 g/dL (6.4-8.2); Sodium Level 138 mEq/L (136-145)
--- NOTE | 2022-12-29 17:13 | EDPHYS ---
Physician Documentation [facility] Name: Desean Kovacs Age: 22 yrs Sex: Male : 2000 Arrival Date: 12/29/2022 Time: 15:43 Bed 15 Private MD: ED Physician Nasim Jaime HPI: 12/29 16:10 This 22 yrs old Male presents to ER via Ambulatory with complaints of Mental eval. cp 16:10 Patient presents to ED with c/o thoughts of suicide by overdose. Patient with history cp of bipolar disorder, depression. Currently taking prescribed Seroquel. Patient reports history of inpatient psych treatment in the past. Historical: - Allergies: 15:56 [place]; nj1 15:56 Tylenol; nj1 - Home Meds: 15:56 Seroquel 25 mg oral tablet 2 tabs once at bedtime [Active]; nj1 - PMHx: 15:56 Anxiety; bipolar 2; Body dysmorphic disorder; borderline personal disorder; Major nj1 Depressive Disorder; MANIC DEPRESSION; PTSD; - PSHx: 15:56 wisdom teeth removal; nj1 - Immunization history:: Client reports receiving the 1st dose of the Covid vaccine. - Social history:: Smoking status: Reported history of juuling and/or vaping. ROS: 16:13 Constitutional: Negative for body aches, chills, fever, poor PO intake, cp 16:13 Psych: Positive for depression, suicidal ideation, cp Exam: 16:15 Constitutional: The patient appears in no acute distress, alert, awake, non-toxic, well cp developed, well nourished, 16:15 Head/Face: Normocephalic, atraumatic. cp 16:15 Eyes: Periorbital structures: appear normal, Conjunctiva: normal, no exudate, no cp injection, Sclera: no appreciated abnormality, Lids and lashes: appear normal, bilaterally, 16:15 ENT: External ear(s): are unremarkable, Nose: is normal, Mouth: Lips: moist, Oral mucosa: pink and intact, moist, Posterior pharynx: Airway: no evidence of obstruction, patent, 16:15 Chest/axilla: Inspection: normal, 16:15 Cardiovascular: Rate: normal, 16:15 Respiratory: the patient does not display signs of respiratory distress, Respirations: normal, no use of accessory muscles, no retractions, labored breathing, is not present, Breath sounds: are clear throughout, no decreased breath sounds, no stridor, no wheezing, 16:15 Abdomen/GI: Exam negative for discomfort, distension, guarding, Inspection: abdomen appears normal, 16:15 Back: pain, is absent, cp 16:15 Neuro: Orientation: to person, place \T\ time. Mentation: is normal, Motor: moves all fours, strength is normal, 16:34 ECG was reviewed by the Attending Physician. cp Vital Signs: 15:51 BP 136 / 104; Pulse 98; Resp 16; Temp 99(O); Pulse Ox 99% ; Weight 85.73 kg; Height 5 nj1 ft. 11 in. ; Pain 7/10; 15:51 Body Mass Index 26.36 (85.73 kg, 180.34 cm) nj1 15:51 Pain Scale: Adult nj1 MDM: 16:10 Patient medically screened. cp 16:30 Differential diagnosis: depression, suicidal ideation, acute psychosis, illegal drug cp use. 17:20 Data reviewed: vital signs, nurses notes, lab test result(s), EKG. cp 17:20 ED course: [facility] to be contacted to perform mental health evaluation. cp 22:15 ED course: Patient evaluated by [facility] and felt to be stable for discharge with cp outpatient clinic f/u. Patient currently denying any thoughts of suicide and would like discharge to home. Patient will return to ED if symptoms worsen. 12/29 16:07 Order name: Acetaminophen; Complete Time: 17:11 kd3 12/29 16:07 Order name: Basic Metabolic Panel; Complete Time: 17:11 kd3 12/29 17:11 Interpretation: Normal except: CL 109. cp 12/29 16:07 Order name: CBC with Diff; Complete Time: 17:11 kd3 12/29 17:11 Interpretation: Normal except: MCHC 36.5; RDW 12.0; MPV 7.2. cp 12/29 16:07 Order name: ETOH Level; Complete Time: 17:11 kd3 12/29 16:07 Order name: Hepatic Function; Complete Time: 17:11 kd3 12/29 17:11 Interpretation: Normal except: GLOB 3.7. cp 12/29 16:07 Order name: PT-INR; Complete Time: 17:11 kd3 12/29 16:07 Order name: Ptt, Activated; Complete Time: 17:11 3 12/29 16:07 Order name: Salicylate; Complete Time: 17:11 3 12/29 16:07 Order name: Urine Drug Screen [facility] 12/29 16:07 Order name: EKG; Complete Time: 16:08 3 12/29 16:07 Order name: EKG - Nurse/Tech; Complete Time: 16:29 kd3 12/29 16:07 Order name: IV Saline Lock; Complete Time: 16: 3 12/29 16:07 Order name: Labs collected and sent; Complete Time: 16: 3 12/29 16:07 Order name: Suicide Screening ([place]); Complete Time: 16: kd3 EC:34 Rate is 79 beats/min. Rhythm is regular. GA interval is normal. QRS interval is cp prolonged at 112 msec. QT interval is normal. T waves are Inverted in lead aVR. Interpreted by me. Reviewed by me. Administered Medications: No medications were administered Disposition: 16:57 I was immediately available on-site in the Emergency Department for consultation in the ms3 care of the patient. Disposition Summary: 12/29/22 22:23 Discharge Ordered Notes: Location: Home cp Problem: an ongoing problem(12/29/22 22:23) cp Symptoms: have improved(12/29/22 22:23) cp Condition: Stable(12/29/22 22:23) cp Diagnosis - Other depressive episodes cp Followup: cp - With: Private Physician - When: 2 - 3 days - Reason: Recheck today's complaints Discharge Instructions: - Discharge Summary Sheet cp - Managing Depression, Adult cp Forms: - Medication Reconciliation Form cp - Thank You Letter cp - Antibiotic Education cp - Prescription Opioid Use cp - Patient Portal Instructions cp - Leadership Thank You Letter cp Signatures: Dispatcher [employer] EDMS Dima Crow PA PA cp Sims, Marcus, DO DO ms3 Pippa Rosado RN RN kd3 Alisha Cedillo RN RN nj1 Corrections: (The following items were deleted from the chart) 22:23 17:12 Doctor cp cp 22:23 17:12 Psych Facility cp cp 22:23 17:12 Higher level of care cp cp 22:23 17:12 Stable cp cp 22:23 17:12 new cp cp 17:12 have improved cp cp 17:12 Suicidal ideations cp cp
--- NOTE | 2022-12-29 17:13 | ER ---
Nurse's Notes [facility] Name: Desean Kovacs Age: 22 yrs Sex: Male : 2000 Arrival Date: 12/29/2022 Time: 15:43 Bed 15 [facility] MD: Diagnosis: Other depressive episodes Presentation: 12/29 15:51 Chief complaint: Patient states: "im suicidal" with a plan. Coronavirus screen: Vaccine nj1 status: Patient reports receiving the 1st dose of the Covid vaccine. Ebola Screen: Patient denies travel to an Ebola-affected area in the 21 days before illness onset. Initial Sepsis Screen: Does the patient meet any 2 criteria? HR > 90 bpm. No. Patient's initial sepsis screen is negative. Does the patient have a suspected source of infection? No. Patient's initial sepsis screen is negative. Risk Assessment: Do you want to hurt yourself or someone else? Patient reports desire/thoughts of hurting themselves or someone else. Provider notified. Onset of symptoms was December 2022. 15:51 Method Of Arrival: Ambulatory nj 15:51 Acuity: KAROL 2 nj1 Historical: - Allergies: 15:56 [place]; nj1 15:56 Tylenol; nj1 - Home Meds: 15:56 Seroquel 25 mg oral tablet 2 tabs once at bedtime [Active]; nj1 - PMHx: 15:56 Anxiety; bipolar 2; Body dysmorphic disorder; borderline personal disorder; Major nj1 Depressive Disorder; MANIC DEPRESSION; PTSD; - PSHx: 15:56 wisdom teeth removal; nj1 - Immunization history:: Client reports receiving the 1st dose of the Covid vaccine. - Social history:: Smoking status: Reported history of juuling and/or vaping. Screenin:00 [facility] ED Fall Risk Assessment (Adult) History of falling in the last 3 months, kc6 including since admission No falls in past 3 months (0 pts) Confusion or Disorientation No (0 pts) Intoxicated or Sedated No (0 pts) Impaired Gait No (0 pts) Mobility Assist Device Used No (0 pt) Altered Elimination No (0 pt) Score/Fall Risk Level 0 - 2 = Low Risk. Abuse screen: Denies threats or abuse. Denies injuries from another. Nutritional screening: No deficits noted. Tuberculosis screening: No symptoms or risk factors identified. Assessment: 16:00 General: Appears in no apparent distress. comfortable, Behavior is calm, cooperative, kc6 appropriate for age. Pain: Denies pain. Neuro: Level of Consciousness is awake, alert, obeys commands, Oriented to person, place, time, situation, Appropriate for age. Cardiovascular: Capillary refill < 3 seconds. Respiratory: Airway is patent Trachea midline Respiratory effort is even, unlabored, Respiratory pattern is regular, symmetrical. GI: No signs and/or symptoms were reported involving the gastrointestinal system. : No signs and/or symptoms were reported regarding the genitourinary system. EENT: No signs and/or symptoms were reported regarding the EENT system. Derm: No signs and/or symptoms reported regarding the dermatologic system. Skin is intact, is healthy with good turgor, Skin is pink, warm \\T\\ dry. Musculoskeletal: No signs and/or symptoms reported regarding the musculoskeletal system. Circulation, motion, and sensation intact. Capillary refill < 3 seconds, Range of motion: intact in all extremities. 17:00 Reassessment: Patient appears in no apparent distress at this time. No changes from kc6 previously documented assessment. Patient and/or family updated on plan of care and expected duration. Pain level reassessed. Patient is alert, oriented x 3, equal unlabored respirations, skin warm/dry/pink. 19:00 Reassessment: RECD REPORT FROM NAI HOOPER. 22YO WM P/W SI, NO PLAN OR GESTURE. PT bp STATES NO LONGER SI. [facility] PENDING. 21:00 Reassessment: [facility] EVAL AT B/S. bp 22:20 Reassessment: PER [facility] SCREENER, PT TBDC. bp Vital Signs: 15:51 BP 136 / 104; Pulse 98; Resp 16; Temp 99(O); Pulse Ox 99% ; Weight 85.73 kg; Height 5 nj1 ft. 11 in. ; Pain 7/10; 15:51 Body Mass Index 26.36 (85.73 kg, 180.34 cm) nj1 15:51 Pain Scale: Adult nj1 ED Course: 15:45 Patient arrived in ED. mr 15:56 Triage completed. nj1 15:57 Arm band placed on right wrist. nj1 16:00 Patient has correct armband on for positive identification. Placed in gown. Bed in low kc6 position. Call light in reach. Side rails up X2. Valuables inventory done. Locked in safe. See valuables checklist. Patient is placed in psych hold. 16:09 Dima Crow PA is PHCP. cp 16:09 Patient placed in an exam room, on a stretcher. kd3 16:09 Inserted saline lock: 22 gauge in right antecubital area, using aseptic technique. kd3 Blood collected. 16:10 Milad Lantigua MD is Attending Physician. cp 16:15 Nai Smallwood, RN is Primary Nurse. kc6 16:27 Nasim Jaime DO is Attending Physician. cp 18:05 called the [facility] Crisis Line/ Melissa will page out a screener. eb 20:00 IV discontinued, intact, bleeding controlled, No redness/swelling at site. Pressure bp dressing applied. Administered Medications: No medications were administered Outcome: 17:12 ER care complete, transfer ordered by MD. cp 22:23 Discharge ordered by MD. cp 22:53 Patient left the ED. bp Signatures: Rosa Rodriguez, Reg Reg mr Dima Crow PA PA cp Fei Dinh, RN RN bp Nancy Bryan Kyli RN RN kd3 Nai Smallwood, RUFUS RN kc6 Alisha Cedillo RN RN nj1
[2022-12-29 17:58] LABS: Barbiturates NEGATIVE (NEGATIVE); Benzodiazepines NEGATIVE (NEGATIVE); Cocaine NEGATIVE (NEGATIVE); METHAMPHETAM NEGATIVE (NEGATIVE); Opiates NEGATIVE (NEGATIVE); Phencyclidine NEGATIVE (NEGATIVE); THC Cannibis NEGATIVE (NEGATIVE)
[2022-12-29 18:06] LABS: Methadone ND (NEGATIVE)
[2022-12-29 23:04] VITALS: BP 136/104; TEMP 99; O2SAT 99
--- NOTE | 2022-12-30 11:21 | EKG ---
Test Date: 2022-12-29 Test Time: 16:30:43 [place]water [place]: TOSIN MEASUREMENT RESULTS: Intervals: Rate: 79 TX: 136 QRSD: 112 QT: 344 QTc: 394 [place]: P: 64 TX: 136 QRS: 86 T: 44 INTERPRETIVE STATEMENTS: Normal sinus rhythm with sinus arrhythmia Normal ECG Compared to ECG 04/04/2021 14:52:44 Right-axis deviation no longer present Incomplete right bundle-branch block no longer present Electronically Signed On 12-30-22 11:18:15 CDT by Crow Munoz
== END 2022-12-29 22:53 | disposition home or self-care (01) ==
LOC: ER 15:43
DX: F32.89 Other specified depressive episodes (principal)
CPT/HCPCS: 36415; 80048; 80076; 80143; 80179; 80307; 82077; 85025; 85610; 85730; 93005; 99284

== ENCOUNTER 2023-02-26 22:51 | Emergency (ER) | payer SELFPAY ==
[2023-02-26] MEDS ORDERED: CEFTRIAXONE 500 MG/VIAL ONE (23:23)
[2023-02-26] MEDS ORDERED: metroNIDAZOLE 500 MG TABLET ONE (23:23)
[2023-02-26] MEDS ORDERED: LIDOCAINE 1% MPF 2 ML AMPULE ONE (23:23)
--- NOTE | 2023-02-26 23:24 | ER ---
Nurse's Notes [facility] Name: Desean Kovacs Age: 22 yrs Sex: Male : 2000 Arrival Date: 02/26/2023 Time: 22:51 Bed 12 Private MD: Diagnosis: Unspecified sexually transmitted disease Presentation: 02/26 23:13 Chief complaint: Patient states: 3-4 days of yellow discharge with itching and burning; km8 pt had unprotected sex recently with new partner. Coronavirus screen: Client denies travel out of the [place] in the last 14 days. Ebola Screen: No symptoms or risks identified at this time. Initial Sepsis Screen: Does the patient meet any 2 criteria? No. Patient's initial sepsis screen is negative. Does the patient have a suspected source of infection? No. Patient's initial sepsis screen is negative. Risk Assessment: Do you want to hurt yourself or someone else? Patient reports no desire to harm self or others. Onset of symptoms was February 23, 2023. 23:13 Method Of Arrival: Ambulatory km8 23:13 Acuity: KAROL 3 km8 Triage Assessment: 23:13 General: Appears in no apparent distress. comfortable, Behavior is calm, cooperative, km8 appropriate for age. Pain: Complains of pain in penile burning Pain currently is 4 out of 10 on a pain scale. Quality of pain is described as burning. EENT: No signs and/or symptoms were reported regarding the EENT system. Neuro: Rubi Agitation-Sedation Scale (RASS): 0 - Alert and Calm Level of Consciousness is awake, alert, obeys commands, Oriented to person, place, time, situation. Cardiovascular: Denies chest pain, shortness of breath, Capillary refill < 3 seconds Patient's skin is warm and dry. Respiratory: Airway is patent Respiratory effort is even, unlabored, Respiratory pattern is regular, symmetrical. GI: No signs and/or symptoms were reported involving the gastrointestinal system. : Reports burning with urination, discharge, from penis that is yellow. Derm: Skin is intact, Skin is dry, Skin is normal, Skin temperature is warm. Musculoskeletal: No signs and/or symptoms reported regarding the musculoskeletal system. Circulation, motion, and sensation intact. Range of motion: intact in all extremities. Historical: - Allergies: 23:19 [place]; km8 23:19 Tylenol; km8 - PMHx: 23:19 PTSD; MANIC DEPRESSION; Major Depressive Disorder; borderline personal disorder; Body km8 dysmorphic disorder; bipolar 2; Anxiety; - PSHx: 23:19 wisdom teeth removal; km8 - Immunization history:: Client reports receiving the 1st dose of the Covid vaccine, Flu vaccine is not up to date. - Social history:: Smoking status: Reported history of juuling and/or vaping. Patient/guardian denies using alcohol, street drugs. - Family history:: not pertinent. - Hospitalizations: : No recent hospitalization is reported. Screenin:29 [facility] ED Fall Risk Assessment (Adult) Score/Fall Risk Level 0 - 2 = Low Risk. Abuse as6 screen: Denies threats or abuse. Denies injuries from another. Nutritional screening: No deficits noted. Tuberculosis screening: No symptoms or risk factors identified. Vital Signs: 23:13 BP 160 / 112; Pulse 83; Resp 16; Temp 98.6(O); Pulse Ox 100% on R/A; km8 ED Course: 22:56 Patient arrived in ED. gm2 23:01 César Ward MD is Attending Physician. rn 23:13 Arm band placed on right wrist. km8 23:15 Triage completed. km8 23:29 Placed in gown. Bed in low position. Call light in reach. Provided Education on: follow as6 up, abx teaching . 23:29 No provider procedures requiring assistance completed. Patient did not have IV access as6 during this emergency room visit. Administered Medications: 23:29 Drug: Rocephin (cefTRIAXone) IM 500 mg IM once Route: IM; Site: right vastus lateralis; as6 23:30 Follow up: Response: No adverse reaction as6 23:29 Drug: metroNIDAZOLE PO 2 grams PO once Route: PO; as6 23:30 Follow up: Response: No adverse reaction as6 Medication: 23:29 VIS not applicable for this client. as6 Outcome: 23:23 Discharge ordered by . rn 23:29 Discharged to home ambulatory, as6 23:29 Condition: stable 23:29 Discharge instructions given to patient, Instructed on discharge instructions, follow up and referral plans. medication usage, Demonstrated understanding of instructions, follow-up care, medications, Prescriptions given X 1, 23:35 Patient left the ED. as6 Signatures: César Ward MD MD rn Slawson, Ashby, RN RN as6 Adelina Nuñez gm2 Alma Ramsey RN RN km8
--- NOTE | 2023-02-26 23:24 | EDPHYS ---
Physician Documentation [facility] Name: Desean Kovacs Age: 22 yrs Sex: Male : 2000 Arrival Date: 02/26/2023 Time: 22:51 Bed 12 Private MD: ED Physician César Ward HPI: 02/26 23:20 This 22 yrs old Male presents to ER via Ambulatory with complaints of penile discharge. rn 23:20 The patient presents with urinary symptoms, dysuria. rn 23:20 Onset: The symptoms/episode began/occurred 3 day(s) ago. Modifying factors: The rn symptoms are alleviated by nothing, the symptoms are aggravated by urinating. Associated signs and symptoms: Pertinent positives: dysuria, Pertinent negatives: fever. Severity of symptoms: At their worst the symptoms were mild, in the emergency department the symptoms are unchanged. The patient has not experienced similar symptoms in the past. Patient reports unprotected sex with new partner, now having penile discharge, yellow, dysuria. No fever. No ulcerations or bumps. No skin changes. No difficulty with foreskin retraction.. Historical: - Allergies: 23:19 [place]; km8 23:19 Tylenol; km8 - PMHx: 23:19 PTSD; MANIC DEPRESSION; Major Depressive Disorder; borderline personal disorder; Body km8 dysmorphic disorder; bipolar 2; Anxiety; - PSHx: 23:19 wisdom teeth removal; km8 - Immunization history:: Client reports receiving the 1st dose of the Covid vaccine, Flu vaccine is not up to date. - Social history:: Smoking status: Reported history of juuling and/or vaping. Patient/guardian denies using alcohol, street drugs. - Family history:: not pertinent. - Hospitalizations: : No recent hospitalization is reported. ROS: 23:20 Constitutional: Negative for fever, chills, and weight loss, Abdomen/GI: Negative for rn abdominal pain, nausea, vomiting, diarrhea, and constipation, : Positive for dysuria and penile discharge Exam: 23:20 Constitutional: This is a well developed, well nourished patient who is awake, alert, rn and in no acute distress. Cardiovascular: Regular rate and rhythm. No pulse deficits. Abdomen/GI: Soft, non-tender Skin: Warm, dry with normal turgor. Normal color with no rashes Vital Signs: 23:13 BP 160 / 112; Pulse 83; Resp 16; Temp 98.6(O); Pulse Ox 100% on R/A; km8 MDM: 23:01 Patient medically screened. rn 23:20 Differential diagnosis: urethritis, STI. Data reviewed: vital signs, nurses notes, and rn as a result, I will discharge patient. Counseling: I had a detailed discussion with the patient and/or guardian regarding the historical points, exam findings, and any diagnostic results supporting the discharge/admit diagnosis, the need for outpatient follow up, to return to the emergency department if symptoms worsen or persist or if there are any questions or concerns that arise at home. Special discussion: I discussed with the patient/guardian in detail that at this point there is no indication for admission to the hospital. It is understood, however, that if the symptoms persist or worsen the patient needs to return immediately for re-evaluation. ED course: Discussion with patient, high suspicion of STI, will just treat instead of testing as results will not come back today. Patient understands and welcomes this as he is eager to get home. Will contact partner.. Administered Medications: 23:29 Drug: Rocephin (cefTRIAXone) IM 500 mg IM once Route: IM; Site: right vastus lateralis; as6 23:30 Follow up: Response: No adverse reaction as6 23:29 Drug: metroNIDAZOLE PO 2 grams PO once Route: PO; as6 23:30 Follow up: Response: No adverse reaction as6 Disposition Summary: 02/26/23 23:23 Discharge Ordered Notes: Location: Home rn Problem: new rn Symptoms: are unchanged rn Condition: Stable rn Diagnosis - Unspecified sexually transmitted disease rn Followup: rn - With: Private Physician - When: As needed - Reason: Recheck today's complaints, Re-evaluation by your physician Discharge Instructions: - Discharge Summary Sheet rn - Preventing Sexually Transmitted Infections, Adult rn Forms: - Medication Reconciliation Form rn - Thank You Letter rn - Antibiotic advice line rn - Prescription Opioid Use rn - Patient Portal Instructions rn - Leadership Thank You Letter rn Prescriptions: - Doxycycline Monohydrate 100 mg Oral Tablet - take 1 tablet ORAL route every 12 hours for 10 days; 20 tablet; Refills: 0, rn Product Selection Permitted Signatures: César Ward MD MD rn Slawson, Ashby, RN RN as6 Alma Ramsey RN RN km8 Corrections: (The following items were deleted from the chart) 23:22 23:20 Constitutional: This is a well developed, well nourished patient who is awake, rn alert, and in no acute distress. Cardiovascular: Regular rate and rhythm. No pulse deficits. Skin: Warm, dry with normal turgor. Normal color with no rashes rn
[2023-02-27 01:24] VITALS: BP 160/112; TEMP 98.6; O2SAT 100
== END 2023-02-26 23:35 | disposition home or self-care (01) ==
LOC: ER 22:51
DX: A64 Unspecified sexually transmitted disease (principal)
CPT/HCPCS: 96372; 99284